=== PATIENT | male | born 1980 | race Caucasian/White ===

== ENCOUNTER 2018-12-03 17:59 | Emergency (ER) | payer BC, SELFPAY ==
--- NOTE | 2018-12-03 19:04 | RAD ---
RIGHT FOOT THREE VIEWS: 12/03/18 HISTORY: Fell through a roof five days ago. Complaining of heel pain. There is a subtle area of lucency involving the posterior most plantar surface of the calcaneus. This could indicate a subtle occult fracture. Clinical correlation is whether this specifically relates t o patient's pain. IMPRESSION: Subtle lucency in the posterior plantar surface of the calcaneus possibly a subtle occult fracture. C linical correlation. POS: JOSÉ
--- NOTE | 2018-12-03 19:05 | RAD ---
RIGHT CALCANEUS: 12/03/18 History: injury There is a fracture involving the posterior calcaneus. This is nondisplaced. IMPRESSION: Nondisplaced calcaneal fracture. POS: AGW
== END 2018-12-03 19:49 | disposition home or self-care (01) ==
LOC: NAV ERS 17:59
DX: S92.001A Unspecified fracture of right calcaneus, initial encounter for closed fracture (principal); G47.30 Sleep apnea, unspecified; W17.89XA Other fall from one level to another, initial encounter
CPT/HCPCS: 29515